=== PATIENT | female | born 1995 | race Caucasian/White ===

== ENCOUNTER → 2017-08-02 | Outpatient (CLI) | payer BC ==
[2012-05-17 21:51] VITALS: BP 144/84
[~2017-08-02] MED LIST: BACTRIM DS 8001 TAB PO; FERRATE324 MG PO; FLAGYL500 M1 PO; LEVAQUIN 5500 MG/TA1 PO; MICROGESTIN 1.51 TAB PO; PRENATAL1 TA5 PO; PRILOSEC 20MG20 MG PO
[2017-08-02 12:54] LABS: HEMATOCRIT 39.5 % (37.0-47.0); HEMOGLOBIN 12.8 g/dL (12.5-16.0); MEAN CELL VOLUME 84 fl (78-100); MEAN CORPUSCULAR HEMOGLOBIN 27 pg (27-31); MEAN CORPUSCULAR HGB CONC 32 g/dL (33-37); MEAN PLATELET VOLUME 9.9 fl (7.4-10.4); PLATELET COUNT 399 K/mm3 (130-400); RED BLOOD COUNT 4.71 M/mm3 (4.10-5.30); RED CELL DISTRIBUTION WIDTH 14.2 % (11.5-14.5); WHITE BLOOD COUNT 8.9 K/mm3 (4.8-10.8)
[2017-08-02 13:11] LABS: ALBUMIN 4.2 g/dL (3.5-5.0); BUN/CREATININE RATIO 12.4 (6.0-26.0); CALCIUM 9.4 mg/dL (8.4-10.2); POTASSIUM 3.5 mmol/L (3.6-5.0); TOTAL BILIRUBIN 0.6 mg/dL (0.2-1.3); TOTAL PROTEIN 8.4 g/dL (6.3-8.2)
[2017-08-02 13:17] LABS: PH-URINE 6.5 (5.0 - 8.0); URINE APPEARANCE CLEAR; URINE BILIRUBIN NEGATIVE (NEGATIVE); URINE BLOOD NEGATIVE (NEGATIVE); URINE COLOR YELLOW; URINE GLUCOSE NEGATIVE (NEGATIVE); URINE KETONE NEGATIVE (NEGATIVE); URINE LEUKOCYTE ESTERASE NEGATIVE (NEGATIVE); URINE MUCUS PRESENT (NOT PRESENT); URINE NITRATE NEGATIVE (NEGATIVE); URINE PROTEIN(semi-quant) TRACE mg/dL (NEGATIVE); URINE UROBILINOGEN NORMAL (NORMAL)
[2017-08-02 13:20] LABS: BAND 2 % (0-10); LYMPHOCYTE 11 % (20-51); MONOCYTE 3 % (3-10); NEUTROPHILS 82 % (42-75)
== END ==
LOC: LAB 12:39
PROVIDERS: Nurse Practitioner Family
DX: R10.84 Generalized abdominal pain (principal)

== ENCOUNTER 2017-08-03 09:34 | Emergency (ER) | payer BC ==
[~2017-08-03] VITALS: Ht 165.1 cm; Wt 55.5 kg
[~2017-08-03 09:34] MED LIST changes: -BACTRIM DS 8001 TAB PO; -FLAGYL500 M1 PO; -LEVAQUIN 5500 MG/TA1 PO; -MICROGESTIN 1.51 TAB PO
[2017-08-03] MEDS ORDERED: MICROGESTIN 1.51 TAB PO (09:43)
[2017-08-03] MEDS ORDERED: BACTRIM DS 8001 TAB PO (09:43)
[2017-08-03 10:18] LABS: HEMATOCRIT 35.4 % (37.0-47.0); HEMOGLOBIN 11.4 g/dL (12.5-16.0); MEAN CELL VOLUME 83 fl (78-100); MEAN CORPUSCULAR HEMOGLOBIN 27 pg (27-31); MEAN CORPUSCULAR HGB CONC 32 g/dL (33-37); MEAN PLATELET VOLUME 9.5 fl (7.4-10.4); PLATELET COUNT 334 K/mm3 (130-400); RED BLOOD COUNT 4.27 M/mm3 (4.10-5.30); RED CELL DISTRIBUTION WIDTH 13.9 % (11.5-14.5); WHITE BLOOD COUNT 8.8 K/mm3 (4.8-10.8)
[2017-08-03 10:32] LABS: ALBUMIN 3.6 g/dL (3.5-5.0); BUN/CREATININE RATIO 8.6 (6.0-26.0); CALCIUM 8.7 mg/dL (8.4-10.2); POTASSIUM 3.5 mmol/L (3.6-5.0); TOTAL BILIRUBIN 0.4 mg/dL (0.2-1.3); TOTAL PROTEIN 7.1 g/dL (6.3-8.2)
[2017-08-03 10:33] LABS: LYMPHOCYTE 5 % (20-51); MONOCYTE 5 % (3-10); NEUTROPHILS 88 % (42-75)
[2017-08-03] MEDS ORDERED: LEVAQUIN 5500 MG/TA1 PO (13:46)
[2017-08-03] MEDS ORDERED: FLAGYL500 M1 PO (13:46)
[2017-08-03 13:57] VITALS: BP 120/61
== END 2017-08-03 13:50 | disposition home or self-care (01) ==
LOC: ED 09:34
PROVIDERS: Physician Assistant
DX: K50.014 Crohn's disease of small intestine with abscess (principal); Z88.6 Allergy status to analgesic agent; Z87.11 Personal history of peptic ulcer disease
CPT/HCPCS: Q9967

== ENCOUNTER → 2018-09-24 | Outpatient (CLI) | payer OTHER ==
[~2018-09-24] MED LIST changes: +BACTRIM DS 8001 TAB PO; +FLAGYL500 M1 PO; +LEVAQUIN 5500 MG/TA1 PO; +MICROGESTIN 1.51 TAB PO
== END ==
LOC: RAD 08:43
DX: K63.9 Disease of intestine, unspecified (principal); R31.9 Hematuria, unspecified; K58.9 Irritable bowel syndrome, unspecified
CPT/HCPCS: Q9967

== ENCOUNTER → 2018-12-30 | Outpatient (CLI) | payer OTHER | LOC: RAD 10:44 | DX: K50.00 Crohn's disease of small intestine without complications (principal) | CPT/HCPCS: Q9967 ==